=== PATIENT | male | born 1980 | race Caucasian/White ===

== ENCOUNTER → 2023-02-25 | Outpatient (CLI) | payer OTHER, SELFPAY ==
--- NOTE | 2023-02-25 12:00 | RAD_ITS ---
STUDY: X-RAY - RIGHT SHOULDER REASON FOR EXAM: Male, 42 years old. PROXIMAL HUMERUS FRACTURE 2009 PAIN TECHNIQUE: 4 view(s) of the shoulder. COMPARISON: None. FINDINGS: Old healed fracture of the right humeral head and neck status post ORIF with indwelling orthopedic hardware . No acute fracture or dislocation. RAD/Shoulder min 2 Views IMPRESSION: Postsurgical changes of the right shoulder. No acute fracture or other significant bony pathology Electronically Signed: Kyle Sheehan MD at 21:20 EST ,
== END | disposition home or self-care (01) ==
PROVIDERS: Referring Provider Chiropractor; Visit Provider Chiropractor
DX: S42.201D Unspecified fracture of upper end of right humerus, subsequent encounter for fracture with routine healing (principal); X58.XXXD Exposure to other specified factors, subsequent encounter
CPT/HCPCS: 73030